=== PATIENT | male | born 1990 ===

== ENCOUNTER → 2022-08-23 | Outpatient (CLI) | payer BC ==
[2022-08-23 15:55] LABS: BASOPHILS ABSOLUTE AUTO 0.04 K/mm3 (0.00-0.23); BASOPHILS PERCENT AUTO 0 % (0-2); EOSINOPHILS ABSOLUTE AUTO 0.02 K/mm3 (0.00-0.68); EOSINOPHILS PERCENT AUTO 0 % (0-6); Hematocrit 47.1 % (37.0-53.0); Hemoglobin 16.8 g/dL (13.5-17.5); IMMATURE GRAN PERCENT AUTO 1 % (0-1); LYMPHOCYTES ABSOLUTE AUTO 2.39 K/mm3 (0.84-5.20); LYMPHOCYTES PERCENT AUTO 12 % (21-46); MONOCYTES PERCENT AUTO 7 % (4-13); Mean Corpuscular HGB 31.5 pg (26.0-34.0); Mean Corpuscular HGB Conc 35.7 g/dL (31.5-36.5); Mean Corpuscular Volume 88 fL (80-100); Mean Platelet Volume 8.9 fL (9.1-12.4); NEUTROPHILS PERCENT AUTO 80 % (41-73); Platelet Count 317 K/mm3 (150-400); RDW Coefficient Variation 12.5 % (11.7-14.2); RDW Standard Deviation 40.2 fL (35.1-46.3); Red Blood Cell Count 5.33 M/mm3 (4.30-5.90); White Blood Cell Count 19.85 K/mm3 (4.00-11.30)
[2022-08-23 16:38] LABS: Albumin, Blood 4.4 g/dL (3.4-5.0); Albumin/Globulin Ratio 1.1 (0.8-1.8); Bilirubin, Total 1.4 mg/dL (0.1-1.0); Calcium, Blood 9.3 mg/dL (8.5-10.1); Creatinine, Blood 0.91 mg/dL (0.60-1.20); Potassium, Blood 4.1 mmol/L (3.5-5.5); Total Protein, Blood 8.4 g/dL (6.4-8.2)
== END | disposition home or self-care (01) ==
LOC: LAB 15:50 → LAB SHORT 15:50
PROVIDERS: Physician Assistant
DX: R10.9 Unspecified abdominal pain (principal)
CPT/HCPCS: 80053; 82150; 85025

== ENCOUNTER 2022-11-10 12:17 | Inpatient (IN) | payer BC ==
[~2022-11-10] VITALS: Ht 175.3 cm; Wt 100.2 kg
--- NOTE | 2022-11-10 16:21 | NUR ---
Ambulatory in Day Surgery.. History, Chart, Medications and Allergies reviewed before start of procedure.Patient confirms NPO status and agrees with scheduled surgery. Pre-Op teaching done. Pt verbalizes understanding.
--- NOTE | 2022-11-10 19:17 | NUR ---
SHIFT SUMMARY PT A&OX4, VSS/RA, STEFAN CLD, AWAITING POST OP VOID, IVF @ 150 MLS/HR INFUSING, DENIES NEED FOR PAIN MEDS, REPOSITIONS SELF. REPORT PROVIDED TO SUJATA MONTGOMERY.
--- NOTE | 2022-11-11 04:38 | NUR ---
TRAVELING OPERATOR SUMMARY POD 0 FOR LAP APPY. GAUZE DRESSINGS TO ABD C/D/I. JIMENA DRAIN TO LLQ DRAINING MODERATE AMOUNT OF SEROSANGUINOUS FLUIDS, APPROXIMATELY 300 ML FOR THE SHIFT. PAIN HAS BEEN MANAGED WITH PO NORCO. PT UP TO BATHROOM WITH MINIMAL ASSIST, HAS VOIDED MULTIPLE TIMES. PT TOLERATING CLEAR LIQUID DIET WITH NO ISSUES. VSS, WILL CONTINUE TO MONITOR.
--- NOTE | 2022-11-11 16:40 | NUR ---
SHIFT SUMMARY PT A&OX4, VSS/RA, STEFAN PO REG DIET, VOIDING/PASSING FLATUS, AMBULATING INDEPENDENTLY IN ROOM/TO BRP AND HALLWAYS, DENIES NEED FOR PAIN MEDICATION. POD1 LAP APPY, 2 SITES GAUZE/TEGADERM CDI, JIMENA DRAIN GAUZE/TEGADERM CDI WITH 40 MLS SSD OUT THIS SHIFT. WILL REPORT TO ONCOMING NOC RN.
--- NOTE | 2022-11-12 06:36 | NUR ---
SHIFT SUMMARY NO ACUTE CHANGES OVERNIGHT. POD2 LAP APPY WITH 2 LAP SITES WITH GAUZE AND TEGADERM, JIMENA DRAIN DRAIN WITH VERY MINIMAL OUTPUT (UNMEASURED). PT REPORTS PAIN IS MINIMAL WELL. DIDN'T REQUIRE ANY PAIN MEDS. IV ABX ADMINISTERED. TOLERATING REG DIET. DENIES N/V. IND IN ROOM. PASSING FLATUS. IV ON L AC, PATENT, SALINE LOCKED. AOX4. CALL LIGHT WITHIN REACH. WILL PROVIDE REPORT TO ONCOMING NURSE.
[2022-11-12] MEDS ORDERED: ACET325 PO (11:43)
[2022-11-12] MEDS ORDERED: DOCU100 PO (11:44)
[2022-11-12] MEDS ORDERED: AMOCLA875 PO (11:45)
[2022-11-12] MEDS ORDERED: HYDR1TAB94 PO (11:45)
== END 2022-11-12 13:03 | disposition home or self-care (01) | DRG 340 ==
LOC: ER 12:17 → SURS 15:48
PROVIDERS: ADMIT Surgery
PROC: 0DTJ4ZZ Resection of Appendix, Percutaneous Endoscopic Approach (ICD-10-PCS; principal; 2022-11-10 16:15)
DX: K35.33 Acute appendicitis with perforation, localized peritonitis, and gangrene, with abscess (principal)
CPT/HCPCS: 88304; 99284; A9270; J0694; J1100; J1650; J2250; J2405; J2704; J2795; J3010; J7120

== ENCOUNTER → 2022-11-10 | Outpatient (CLI) | payer BC ==
[~2022-11-10] MED LIST: ACET325 PO; AMOCLA875 PO; DOCU100 PO; HYDR1TAB94 PO
[2022-11-10 08:40] LABS: BASOPHILS ABSOLUTE AUTO 0.04 K/mm3 (0.00-0.23); BASOPHILS PERCENT AUTO 0 % (0-2); EOSINOPHILS ABSOLUTE AUTO 0.07 K/mm3 (0.00-0.68); EOSINOPHILS PERCENT AUTO 1 % (0-6); Hematocrit 44.2 % (37.0-53.0); Hemoglobin 15.6 g/dL (13.5-17.5); IMMATURE GRAN ABSOLUTE AUTO 0.07 K/mm3 (0.00-0.10); IMMATURE GRAN PERCENT AUTO 1 % (0-1); LYMPHOCYTES ABSOLUTE AUTO 2.62 K/mm3 (0.84-5.20); LYMPHOCYTES PERCENT AUTO 17 % (21-46); MONOCYTES ABSOLUTE AUTO 1.54 K/mm3 (0.16-1.47); MONOCYTES PERCENT AUTO 10 % (4-13); Mean Corpuscular HGB 30.7 pg (26.0-34.0); Mean Corpuscular HGB Conc 35.3 g/dL (31.5-36.5); Mean Corpuscular Volume 87 fL (80-100); Mean Platelet Volume 8.8 fL (9.1-12.4); NEUTROPHILS ABSOLUTE AUTO 11.07 K/mm3 (1.96-9.15); NEUTROPHILS PERCENT AUTO 72 % (41-73); Platelet Count 292 K/mm3 (150-400); RDW Coefficient Variation 12.3 % (11.7-14.2); RDW Standard Deviation 39.2 fL (35.1-46.3); Red Blood Cell Count 5.08 M/mm3 (4.30-5.90); White Blood Cell Count 15.41 K/mm3 (4.00-11.30)
[2022-11-10 08:56] LABS: Albumin, Blood 3.9 g/dL (3.4-5.0); Albumin/Globulin Ratio 0.9 (0.8-1.8); Bun/Creatinine Ratio 11.4 (12.0-20.0); Calcium, Blood 9.2 mg/dL (8.5-10.1); Creatinine, Blood 0.79 mg/dL (0.60-1.20); Globulin, Blood 4.5 g/dL (2.2-4.0); Potassium, Blood 3.9 mmol/L (3.5-5.5); Total Protein, Blood 8.4 g/dL (6.4-8.2)
== END | disposition home or self-care (01) ==
LOC: LAB SHORT 08:34
PROVIDERS: Physician Assistant
DX: R10.31 Right lower quadrant pain (principal)
CPT/HCPCS: 80053; 85025